=== PATIENT | female | born 1960 | race Hispanic/Latino ===

== ENCOUNTER 2017-08-14 16:51 | Emergency (ER) | payer SELFPAY ==
[~2017-08-14] VITALS: Ht 144.8 cm; Wt 67.5 kg
[2017-08-14 17:32] LABS: HEMATOCRIT 36.5 % (36.0-46.0); MCH 31.9 PG (29.0-34.0); MCHC 35.6 G/DL (30.0-36.0); MCV 89.5 FL (83-99); PLATELET COUNT 240 K/uL (156-360); RBC DIS.WIDTH-SD 39.4 % (39-53); RED BLOOD COUNT 4.08 M/uL (3.80-5.20)
[2017-08-14 17:40] LABS: CHLORIDE 100 mEq/L (99-109); POTASSIUM 4.1 mEq/L (3.7-5.4); SODIUM 135 mEq/L (136-147)
[2017-08-14 17:42] LABS: GLUCOSE 124 mg/dL (70-99)
[2017-08-14 17:46] LABS: CREATININE 0.7 mg/dL (0.6-1.3)
[2017-08-14 17:47] LABS: GFR ESTIMATE (CALCULATED) > 59 mL/min/; UREA NITROGEN (BUN) 6 mg/dL (9-23)
[2017-08-14 17:53] LABS: TROP-I INTERPRETATION NEGATIVE; TROPONIN-I < 0.01 ng/mL (0.0-0.30)
[2017-08-14 19:30] LABS: ALBUMIN 4.5 g/dL (3.2-4.8)
[2017-08-14 19:33] LABS: TOTAL PROTEIN 6.9 g/dL (6.4-8.3)
[2017-08-14 19:34] LABS: TOTAL BILIRUBIN 0.6 mg/dL (0.0-1.0)
[2017-08-14 19:35] LABS: ALKALINE PHOSPHATASE 95 IU/L (3-129)
[2017-08-14 19:38] LABS: AST (GOT) 20 IU/L (2-34); DIRECT BILIRUBIN 0.2 mg/dL (0.0-0.3)
[2017-08-14 19:39] LABS: ALT (GPT) 21 IU/L (3-49)
[2017-08-14 20:41] LABS: TROP-I INTERPRETATION NEGATIVE; TROPONIN-I < 0.01 ng/mL (0.0-0.30)
[2017-08-14] MEDS ORDERED: NEXIUM40 MG PO (20:48)
[2017-08-14 21:38] VITALS: BP 135/80
== END 2017-08-14 21:40 | disposition home or self-care (01) ==
LOC: EME 16:51
PROVIDERS: Nurse Practitioner Family
DX: K21.9 Gastro-esophageal reflux disease without esophagitis (principal)
CPT/HCPCS: 71046; 76705; 80048; 80076; 84484; 85027; 93005; 99281; 99285